=== PATIENT | female | born 1965 | race Caucasian/White ===

== ENCOUNTER 2017-12-11 09:06 | Observation (INO) | payer OTHER ==
[~2017-12-11] VITALS: Ht 165.1 cm; Wt 74.4 kg
[~2017-12-11 09:06] MED LIST: COUGH DROPS1 EAC1 MM; CYCLOBENZAPRINE5 MG PO; EFFEXOR 5050 MG/1 T1 PO; IBUPROFEN 800800 M1 PO; MUCINEX600 MG PO; NOHOMEMEDICATIONS; PERCOCET 5-3251 EACH PO; PREDNISONE50 MG PO; PROAIR HFA8.5 GM IH; TESSALON PERLE100 MG PO; TRAMADOL 50 MG50 MG PO; ULTRAM50 MG PO; UNICOMPLEX M TA1 TA1 PO; ZESTORETIC 10-1 EACH PO
[2017-12-11 09:11] VITALS: BP 140/77
[2017-12-11 09:50] LABS: ABSOLUTE EOSINOPHILS 0.2 thou/uL (0.0-0.7); ABSOLUTE LYMPHOCYTES 1.8 thou/uL (0.8-5.3); ABSOLUTE MONOCYTES 0.4 thou/uL (0.0-1.2); ABSOLUTE NEUTROPHILS 4.3 thou/uL (1.6-8.1); BASOPHILS 0.6 %; EOSINOPHILS 3.2 %; HEMATOCRIT 37.2 % (37.0-47.0); HEMOGLOBIN 12.7 gm/dL (12.0-15.0); LYMPHOCYTES 26.4 %; MCH 29.4 pg (26.0-34.0); MCHC 34.1 g/dL (28.0-37.0); MCV 86.2 fL (80.0-100.0); MONOCYTES 5.4 %; MPV 7.7 fl. (7.2-11.1); NUCLEATED RBCS 0 /100WBC; PLATELET COUNT* 304 thou/uL (150-400); POLYS 64.4 %; RBC 4.32 mil/uL (4.20-5.00); RDW-CV 12.9 % (10.5-14.5); WBC 6.7 thou/uL (4.0-11.0)
[2017-12-11 09:54] LABS: PROTIME 9.6 Seconds (9.20-11.50)
[2017-12-11 10:02] LABS: ANION GAP 6 mmol/L (7-16); BUN 14 mg/dL (7-18); CALCIUM 9.2 mg/dL (8.5-10.1); CHLORIDE 104 mmol/L (98-107); CO2 31 mmol/L (21-32); CREATININE 0.9 mg/dL (0.6-1.3); GLUCOSE 114 mg/dL (70-99); POTASSIUM 3.5 mmol/L (3.5-5.1); SODIUM 141 mmol/L (136-145)
[2017-12-11 10:09] LABS: ALBUMIN 3.4 g/dL (3.4-5.0); ALKALINE PHOSPHATASE 84 U/L (46-116); SGOT 16 U/L (15-37); SGPT 16 U/L (30-65); TOTAL BILIRUBIN 0.2 mg/dL (<0.1-1.0); TOTAL PROTEIN 7.1 g/dL (6.4-8.2); TROPONIN-I LEVEL <0.06 ng/mL (<0.06)
[2017-12-11 11:20] VITALS: BP 108/53
[2017-12-11 11:35] VITALS: BP 119/56
[2017-12-11] MEDS ORDERED: CLARITIN10 MG PO (11:58)
[2017-12-11 14:05] LABS: CHOLESTEROL 206 mg/dL (<200); HDL CHOLESTEROL 28 mg/dL (>40); LDL CHOLESTEROL 122 mg/dL (<100); TC:HDL 7.4 Ratio (Not establshd); TRIGLYCERIDE 281 mg/dL (<150); VLDL 56 mg/dL (<40)
[2017-12-11 14:06] LABS: SERUM ASSESSMENT CLEAR
--- NOTE | 2017-12-11 15:06 | 2DMMODE ---
[place] [address] 2 D/M-MODE ECHOCARDIOGRAM Name: SANDRAYVES Room: [address] IN [facility]#: [id number] Admission: 12/11/17 Attend Phys: Landen Bell Discharge: Date of : 61 Date of Service: 12/11/17 1506 Report #: [id number] THIS REPORT FOR: //name// APPROVED REPORT Study performed: 12/11/2017 13:51:02 EXAM: Comprehensive 2D, Doppler, and color-flow Echocardiogram Patient Location: In-Patient Room #: 229 Status: routine BSA: 1.82 HR: 61 bpm BP: 119/56 mmHg Rhythm: NSR Other Information Study Quality: Fair Indications CVA/TIA Echo Enhancing Agent Indication: Rule out Shunt Agent(s) / Amount(s) Used: Agitated Saline 10 cc 2D Dimensions LVEF(%): 67.18 (>50%) IVSd: 12.33 (7-11mm) LVOT Diam: 20.45 (18-24mm) LVDd: 42.28 mm PWd: 11.58 (7-11mm) Ascending Ao: 33.96 (22-36mm) LVDs: 26.67 (25-40mm) Aortic Root: 30.46 mm Anderson's LVEF: 67.18 % Volumes Left Atrial Volume (Systole) LA ESV Index: 19.70 mL/m2 Aortic Valve AoV Peak Carlos.: 1.71 m/s AO Peak Gr.: 11.71 mmHg LVOT Max P.56 mmHg AO Mean Gr.: 5.81 mmHg LVOT Mean P.22 mmHg LVOT Max V: 1.18 m/s AO V2 VTI: 30.65 cm LVOT Mean V: 0.66 m/[place] [address] 2 D/M-MODE ECHOCARDIOGRAM Name: YVES FLORES Room: [address] IN .R.#: [id number] Admission: 12/11/17 Attend Phys: Landen Bell Discharge: Date of : 61 Date of Service: 12/11/17 1506 Report #: [id number] CHRIS (VTI): 2.50 cm2 LVOT V1 VTI: 23.33 cm Mitral Valve E/A Ratio: 1.52 MV Decel. Time: 182.33 ms MV E Max Carlos.: 0.81 m/s MV PHT: 52.88 ms MVA (PHT): 4.16 cm2 TDI E/Lateral E': 6.75 E/Medial E': 5.79 Medial E' Carlos.: 0.14 m/s Lateral E' Carlos.: 0.12 m/s Pulmonary Valve PV Peak Carlos.: 1.20 m/s PV Peak Gr.: 5.80 mmHg Tricuspid Valve RAP Estimate: 5.00 mmHg TR Peak Gr.: 22.26 mmHg RVSP: 27.26 mmHg PA Pressure: 27.26 mmHg Left Ventricle The left ventricle is normal size. There is normal LV segmental wall motion. Mild concentric left ventricular hypertrophy. Left ventricular systolic function is normal. The left ventricular ejection fraction is within the normal range. LVEF is 60-65%. The left ventricular diastolic function is normal. Right Ventricle The right ventricle is normal size. The right ventricular systolic function is normal. Atria The left atrium size is normal. Interatrial septum is intact without evidence of ASD or PFO. The right atrium size is normal. Aortic Valve The aortic valve is normal in structure. No aortic regurgitation is present. There is no aortic valvular stenosis. Mitral Valve The mitral valve is normal in structure. There is no mitral valve regurgitation noted. No evidence of mitral valve stenosis. [place] [address] 2 D/M-MODE ECHOCARDIOGRAM Name: SANDRAYVES Room: [address] M.R.#: [id number] Admission: 12/11/17 Attend Phys: Landen Bell Discharge: Date of : 61 Date of Service: 12/11/17 1506 Report #: [id number] The tricuspid valve is normal in structure. Trace tricuspid regurgitation estimated pa pressure 30 mm Hg Pulmonic Valve The pulmonary valve is normal in structure. There is no pulmonic valvular regurgitation. Great Vessels The aortic root is normal in size. IVC is normal in size and collapses with >50% inspiration Pericardium There is no pericardial effusion. <Conclusion> Mild concentric left ventricular hypertrophy. LVEF is 60-65%. Interatrial septum is intact without evidence of ASD or PFO. <ELECTRONICALLY SIGNED> By: Braulio Polanco MD, [facility] 12/11/17 1506 1506 1506 Braulio Polanco MD, FACC /INF
--- NOTE | 2017-12-11 15:15 | EKG ---
[place] [address] ELECTROCARDIOGRAM REPORT Name: SANDRAYVES ROSSI Room: [address] ADM IN [facility].#: [id number] Admission: 12/11/17 Attend Phys: Landen Ledesma, Discharge: Date of : 61 Report #: [id number] THIS REPORT FOR: //name// [facility] ED Test Date: 2017-12-11 Test Time: 09:31:48 Pat Name: YVES FLORES Department: Room: [facility] Gender: F Chief Estimator: : 1965 Requested By: Familia Lewis Order Number: [id number] MD: Braulio Polanco Measurements Intervals [place] Rate: 64 P: 70 AL: 147 QRS: 66 QRSD: 88 T: 68 QT: 477 QTc: 493 Interpretive Statements Sinus rhythm nonspecific st changes low voltage Low voltage, precordial leads Borderline prolonged QT interval No previous ECG available for comparison Electronically Signed On 12-11-2017 15:15:15 CDT by Braulio Polanco [email or web address] <ELECTRONICALLY SIGNED> By: Braulio Polanco MD, [facility] 12/11/17 1515 0931 Braulio Polanco MD, [facility] /EPI
[2017-12-11 15:50] VITALS: BP 109/49
[2017-12-11 16:00] VITALS: BP 109/49
[2017-12-11 20:00] VITALS: BP 118/68
[2017-12-12] VITALS: BP 114/60
[2017-12-12 04:00] VITALS: BP 137/68
[2017-12-12 08:15] VITALS: BP 124/65
[2017-12-12 12:17] VITALS: BP 128/58
[2017-12-12 16:29] VITALS: BP 128/58
[2017-12-12] MEDS ORDERED: ASPIRIN325 PO (16:40)
[2017-12-12] MEDS ORDERED: TYLENOL EXTRA500 MG PO (16:43)
[2017-12-12 16:52] VITALS: BP 154/73
[2018-02-23] MEDS ORDERED: IBUPROFEN 800800 M1 PO (08:15)
[2018-02-23] MEDS ORDERED: BUSPIRONE HCL10 MG PO (13:21)
[2018-02-23] MEDS ORDERED: ZOCOR20 MG PO (13:22)
== END 2017-12-12 17:00 | disposition home or self-care (01) ==
LOC: M.ERS 09:06 → M.2W 10:21 → M.TBA-ER 10:21 → M.2W 11:35
PROVIDERS: Emergency Medicine; Psychiatry & Neurology Neurology; ADMIT Family Medicine
DX: G45.9 Transient cerebral ischemic attack, unspecified (principal); I10 Essential (primary) hypertension; J32.4 Chronic pansinusitis; F32.9 Major depressive disorder, single episode, unspecified; F17.210 Nicotine dependence, cigarettes, uncomplicated

== ENCOUNTER → 2018-01-22 | Outpatient (CLI) | payer OTHER ==
[~2018-01-22] MED LIST changes: +ASPIRIN325 PO; +BUSPIRONE HCL10 MG PO; +CLARITIN10 MG PO; +TYLENOL EXTRA500 MG PO; +ZOCOR20 MG PO
== END ==
LOC: M.MRI 04:56
DX: M47.22 Other spondylosis with radiculopathy, cervical region (principal); M48.02 Spinal stenosis, cervical region; I10 Essential (primary) hypertension; F17.210 Nicotine dependence, cigarettes, uncomplicated

== ENCOUNTER → 2018-02-23 | Outpatient (CLI) | payer OTHER ==
--- NOTE | 2018-03-10 15:35 | PAINCON ---
[address] [address] PAIN MANAGEMENT CONSULTATION Name: SANDRAROSEMARIE Room: [facility] Tim#: [id number] Admission: 02/23/18 Attend Phys: Maurisio Suazo MD Discharge: Date of : 61 Report #: [id number] THIS REPORT FOR: //name// CC: Damari Suazo DATE OF SERVICE: 02/23/2018 CHIEF COMPLAINT: Pain in the left arm that goes down from the neck into the thumb, elbow, and fingers. HISTORY: The patient is a 52-year-old female, who has been referred to the pain clinic for evaluation of neck, shoulder, and arm pain. She states that she has been having some pain since about 08/2017. It has been on and off for quite a number of years. She notes that the pain is worse when she is using her left arm a lot. She notes the pain is improved when she rests it as well as places ice on it. She describes it as continuous, constant, shooting, burning, throbbing, and rates it as 6/10 at this juncture. She has not had neck surgery. She denies any significant trauma. She has used ibuprofen, Flexeril, and still continues to have pain, which is problematic. PAST MEDICAL HISTORY: She has essential hypertension, nicotine habituation, dysthymic disorder, hyperlipidemia, transient ischemic attack, bronchitis, cancer, and dysplasia. PAST SURGICAL HISTORY: She has tonsillectomy, adenoids, x 1, and laser of the cervix for dysplasia. CURRENT MEDICATIONS: The patient is on Tylenol Extra Strength, aspirin 325 mg, buspirone 10 mg b.i.d., 7.5 mg twice a day; cyclobenzaprine 1 tablet of 5 mg p.o. t.i.d., ibuprofen 800 mg q.8 hours, lisinopril/hydrochlorothiazide 10/12.5, Claritin 10 mg, multivitamins with iron and minerals 1 tablet, Zocor 20 mg at bedtime, and Effexor 150 mg daily. ALLERGIES: THE PATIENT IS ALLERGIC TO CODEINE. SOCIAL HISTORY: She works at home care. She is working at this juncture. REVIEW OF SYSTEMS: Generally in good health, recent weight change, fatigue, weakness, headaches, wears glasses, blurred vision, ringing in the ears, loss of hearing, chronic sinus problems, mouth sores, swollen neck glands, shortness of breath with walking on flat, frequent diarrhea, nausea and vomiting, frequent urination, joint pain, joint stiffness, weakness of muscles and joints, muscle pain with cramps, back pain, difficulty walking, numbness and tingling sensation, nervousness, [place] [address] PAIN MANAGEMENT CONSULTATION Name: YVES FLORES ANN Room: [facility]#: [id number] Admission: 02/23/18 Attend Phys: Maurisio Suazo MD Discharge: Date of : 61 Report #: [id number] PAIN CLINIC ASSESSMENT AND PQRS: 1. History of osteoarthritis. The patient is not being treated for osteoarthritis, does have some left arm pain. 2. Pain intensity is 6/10. 3. Fall risk. The patient has not fallen in the last 3 months. 4. Blood thinner. The patient is not on a blood thinning medication. 5. Hypertension. The patient is being treated for hypertension. 6. Opioid therapy greater than 6 weeks. The patient is not receiving opioid medications on a regular basis. 7. Risk assessment tool, low for opioids. 8. Functional assessment tool. 9. Recreational drug use. The patient denies use of recreational drugs. 10. Tobacco: The patient smoked 35 years, down from 1 pack a day to a half pack a day at this juncture. 11. Alcohol: The patient denies use of alcoholic beverages on a frequent basis. PHYSICAL EXAMINATION: GENERAL: The patient is a well-developed, well-nourished white female. She appears her stated age. She is alert and oriented x 3. Her affect is appropriate. Speech is fluent. Height is 5 feet 5 inches, weight is 168 pounds, and BMI is 28. VITAL SIGNS: Blood pressure is 124/72, heart rate is 71, respiratory rate is 18, room air saturation is 96%, and temperature is 98.0. HEENT: Normocephalic, atraumatic. Extraocular eye muscles intact. Sclerae nonicteric. Mucous membranes are moist. NECK: Without adenopathy or JVD. HEART: Regular rate. S1, S2. LUNGS: Clear to auscultation. ABDOMEN: Nontender. Bowel sounds present. EXTREMITIES: Upper extremity muscle strength is judged to be 5/5 in the right upper extremity. The patient has some decrease muscle strength in the left arm. She has some numbness and tingling on the left side in the C8 dermatomal distribution. Deep tendon reflexes are +1 for the left and the right biceps. The patient without significant scoliosis, kyphosis, or lordosis. She has muscle strength judged to be 5/5 for the major muscle groups in the lower extremity. Forward bending and right lateral rotation were not problematic. The patient is able to stand on her toes and heels. Straight leg raise is negative. Nicolás sign is negative. LABORATORY DATA: MRI of the cervical spine dated 01/22/2018: 1. C3-C4: There is minimal posterior disk bulge. There is no significant central spinal canal or right-sided neural foraminal stenosis. There is [id number] left neural foraminal stenosis due to uncovertebral and facet arthrosis with at least moderate left facet arthrosis. 2. C4-C5: There is a small broad-based posterior disk bulge. [place] [address] PAIN MANAGEMENT CONSULTATION Name: YVES FLORES ANN Room: [facility]#: [id number] Admission: 02/23/18 Attend Phys: Maurisio Suazo MD Discharge: Date of : 61 Report #: [id number] significant central spinal canal or right-sided neural foraminal stenosis. There is a mild left neural foraminal stenosis due to uncovertebral and facet arthrosis. 3. C5-C6: There is a small broad-based angioedema, posterior disk osteophyte complex, which mildly effaces the ventral thecal sac. There is no significant central spinal canal stenosis. There is moderate right and mild to left neural foraminal stenosis due to uncovertebral and facet arthrosis. 4. C6-C7. There is no significant disk bulge or protrusion identified. There is no significant central spinal canal or neural foraminal stenosis. 5. C7-T1: No significant disk bulge. IMPRESSION: 1. Cervical radiculopathy involving the left arm with numbness, weakness, and sensory change. 2. Essential hypertension. 3. Nicotine habituation. 4. Dysthymic disorder. 5. Hyperlipidemia. 6. History of transient ischemic attack. 7. She is having pain and discomfort with the pain that is radiating down to the left arm. She notes that there are sensory changes involving her little finger, forearm, and elbow area. She perceives some weakness in the C7-T8 dermatomal distribution. Also, has some pain and discomfort in the left suprascapular area. She has some discomfort in the mid back area about the bra line. RECOMMENDATIONS: We have discussed treatment options with the patient. Risks and benefits of a cervical epidural steroid injection were discussed. They could include but are not limited to infection, worsening of pain, no improvement in pain, and the patient will return to the pain clinic at which time she will then consider undergoing a cervical epidural steroid injection to help decrease the pain and discomfort that she is having. She will continue with her current medications of Flexeril and ibuprofen. We would like to thank you for letting us to participate in her care. We hope she continues to improve. <ELECTRONICALLY SIGNED> By: Maurisio Suazo MD 03/10/18 1535 1612 [id number]. Gurmeet Suazo MD /[facility]
== END ==
LOC: M.PC 05:05
DX: M54.2 Cervicalgia (principal); R20.0 Anesthesia of skin

== ENCOUNTER → 2018-03-09 | Outpatient (CLI) | payer OTHER ==
--- NOTE | ~2018-03-09 | PAINCON ---
[address] [address] PAIN MANAGEMENT CONSULTATION Name: YVES FLORES ANN Room: [facility] Meeta#: [id number] Admission: 03/09/18 Attend Phys: Maurisio Suazo MD Discharge: Date of : 61 Report #: [id number] THIS REPORT FOR: //name// CC: Damari Suazo DATE OF SERVICE: 03/09/2018 FOLLOWUP COMPLAINT: Left arm pain that radiates down into the thumb, elbow and fingers. HISTORY: The patient is a 52-year-old female who has been seen in the Pain Clinic because of neck, shoulder, and arm pain. States that she has been having pain and discomfort, which has been problematic since 08/2017. Over the years, the pain has waxed and waned. At this point, she notes that the pain is more problematic in the left arm. It is more disruptive to activities of daily living. She notes that her pain improves when she places on ice. Continues to describe it as constant, continuous, shooting, burning, throbbing pain and rates it as a 6/10. She has returned today with the intent on undergoing a cervical epidural steroid injection to help quell the pain. Denies any new trauma. Continues to use ibuprofen, Flexeril to help with pain control. ALLERGIES: CODEINE. CURRENT MEDICATIONS: Include Tylenol Extra Strength, aspirin 33.25 mg, buspirone 10 mg b.i.d., 75 mg twice a day, Flexeril 5 mg p.o. t.i.d., ibuprofen 800 mg q. 8 hours, lisinopril/hydrochlorothiazide 10/12.5, Claritin 10 mg, multivitamin with iron and minerals, Zocor 20 mg at bedtime, and Effexor 150 mg daily. PAIN CLINIC ASSESSMENT/PQRS: 1. The patient is not being treated for osteoarthritis or rheumatoid arthritis. 2. Height 5 feet 5 inches, weight 173 pounds, BMI is 29.2. 3. Vital signs: Blood pressure 124/71, heart rate 83, respiratory rate 16, room air saturation 96%, temperature 98.4. 4. Pain intensity 10. 5. Fall history: The patient has not fallen in the last 3 months. 6. Blood thinner. The patient is not on a blood thinning medication. 7. Hypertension. The patient is being treated for hypertension. 8. Opioids greater than 6 weeks. The patient is not receiving opioid medications. 9. Risk assessment tool, low for opioid use. 10. Functional assessment tool. 11. Recreational drug use. The patient denies use of recreational drugs. 12. Tobacco: The patient has smoked 35 years, smokes 1 pack a day at this juncture, we discussed the benefits of smoking cessation [place] [address] PAIN MANAGEMENT CONSULTATION Name: YVES FLORES ANN Room: [facility]#: [id number] Admission: 03/09/18 Attend Phys: Maurisio Suazo MD Discharge: Date of : 61 Report #: [id number] 13. Alcohol: The patient denies use of alcoholic beverages on a regular basis. PHYSICAL EXAMINATION: GENERAL: The patient is a well-developed, well-nourished white female. Somewhat obese. She is alert and oriented x 3. Her affect is appropriate. Speech is fluent. HEENT: Normocephalic, atraumatic. Extraocular eye muscles intact. Sclerae nonicteric. Mucous membranes are moist. HEART: Regular rate. S1, S2. LUNGS: Clear to auscultation without rhonchi or rales. ABDOMEN: Nontender. Bowel sounds present. EXTREMITIES: Upper extremity muscle strength is judged to be 5/5 in the right upper extremity. The patient has some decrease muscle strength in the left arm. Has some numbness and tingling on the left arm with sensory changes down into the left side with involvement of the C8 dermatomal distribution. Deep tendon reflexes are +1 for the left and right biceps. The patient is without significant scoliosis, kyphosis or lordosis. Muscle strength is judged to be 5/5 for the major muscle groups in the lower extremity. Forward bending, right lateral rotation were not problematic. The patient is able to stand on her heels and her toes. Straight leg raise is negative. Nicolás sign is negative. IMPRESSION: 1. Cervical radiculopathy involving the left arm with numbness, weakness and sensory changes. 2. Essential hypertension. 3. Nicotine habituation. 4. Dysthymic disorder. 5. Hyperlipidemia. 6. History of transient ischemic attack. 7. The patient is having discomfort and pain is radiating down her left arm. Notes that there are some sensory changes involving her little finger, forearm and elbow. Perceives weakness in the C7/C8 dermatomal distribution. The patient also has some pain and discomfort in the left suprascapular area. Has some discomfort in the mid portion of her back near the area of her bra line as well. RECOMMENDATIONS: We discussed treatment options with the patient. The patient has returned to the Pain Clinic for a cervical epidural steroid injection. Risks and benefits of the procedure were again reviewed. They include but are not limited to infection, increased muscle soreness, headache, bleeding, no improvement in pain, paralysis. The patient elects to proceed. PROCEDURE NOTE: The patient was assisted in getting on the examination table. Her back was sterilely prepped with a Betadine solution. A 0.25% bupivacaine was infiltrated at the C7-T1 interspace. Fluoroscopy using anterior, posterior as well as lateral viewing were implemented. A 17-gauge Tuohy with loss of resistance technique was used to gain access to the epidural [place] [address] PAIN MANAGEMENT CONSULTATION Name: YVES FLORES ANN Room: [facility]#: [id number] Admission: 03/09/18 Attend Phys: Maurisio Suazo MD Discharge: Date of : 61 Report #: [id number] no CSF, heme or paresthesia. Total of 80 mg Depo-Medrol, 40 mg triamcinolone and 2 mL of 0.25% bupivacaine was injected. The patient tolerated the procedure well. There were no complications. She remained in the Pain Clinic for an appropriate amount of time. Approximately 15 seconds fluoroscopy time was used. We would like to thank you for letting us participate in her care. We hope she continues to improve. We would like to thank you for letting us participate in her care. By: 1510 [id number]. Gurmeet Suazo MD /nt
== END | disposition home or self-care (01) ==
LOC: M.PC 04:36
DX: M54.12 Radiculopathy, cervical region (principal); I10 Essential (primary) hypertension; F34.1 Dysthymic disorder; E78.5 Hyperlipidemia, unspecified; E66.9 Obesity, unspecified; F17.200 Nicotine dependence, unspecified, uncomplicated; Z86.73 Personal history of transient ischemic attack (TIA), and cerebral infarction without residual deficits; Z88.8 Allergy status to other drugs, medicaments and biological substances; Z79.82 Long term (current) use of aspirin; Z79.899 Other long term (current) drug therapy; Z68.29 Body mass index [BMI] 29.0-29.9, adult

== ENCOUNTER → 2018-05-05 | Outpatient (CLI) | payer OTHER ==
[2018-05-05 14:56] LABS: ABSOLUTE BASOPHILS 0.1 thou/uL (0.0-0.2); ABSOLUTE EOSINOPHILS 0.1 thou/uL (0.0-0.7); ABSOLUTE LYMPHOCYTES 2.1 thou/uL (0.8-5.3); ABSOLUTE MONOCYTES 0.4 thou/uL (0.0-1.2); ABSOLUTE NEUTROPHILS 6.6 thou/uL (1.6-8.1); BASOPHILS 0.6 %; EOSINOPHILS 1.5 %; HEMATOCRIT 35.2 % (37.0-47.0); LYMPHOCYTES 22.5 %; MCH 30.1 pg (26.0-34.0); MCHC 34.1 g/dL (28.0-37.0); MCV 88.3 fL (80.0-100.0); MONOCYTES 4.5 %; MPV 6.8 fl. (7.2-11.1); NUCLEATED RBCS 0 /100WBC; PLATELET COUNT* 389 thou/uL (150-400); POLYS 70.9 %; RBC 3.98 mil/uL (4.20-5.00); RDW-CV 13.8 % (10.5-14.5); WBC 9.3 thou/uL (4.0-11.0)
[2018-05-05 15:14] LABS: ALBUMIN 3.4 g/dL (3.4-5.0); CALCIUM 9.4 mg/dL (8.5-10.1); POTASSIUM 4.1 mmol/L (3.5-5.1); TOTAL BILIRUBIN 0.2 mg/dL (<0.1-1.0); TOTAL PROTEIN 6.9 g/dL (6.4-8.2)
== END ==
LOC: M.ULTRA 14:28
PROVIDERS: Family Medicine
DX: R22.1 Localized swelling, mass and lump, neck (principal); I10 Essential (primary) hypertension; Z87.891 Personal history of nicotine dependence

== ENCOUNTER 2018-07-19 03:43 | Emergency (ER) | payer OTHER ==
[~2018-07-19] VITALS: Ht 167.6 cm; Wt 83.5 kg
[2018-07-19] MEDS ORDERED: ULTRAM 50MG TAB50 MG PO (03:58)
[2018-07-19 04:21] VITALS: BP 133/53
== END 2018-07-19 04:26 | disposition home or self-care (01) ==
LOC: M.ERS 03:43
DX: S43.491A Other sprain of right shoulder joint, initial encounter (principal); I10 Essential (primary) hypertension; F32.9 Major depressive disorder, single episode, unspecified; F17.210 Nicotine dependence, cigarettes, uncomplicated; Z98.890 Other specified postprocedural states; Z88.5 Allergy status to narcotic agent; W01.0XXA Fall on same level from slipping, tripping and stumbling without subsequent striking against object, initial encounter; Y93.89 Activity, other specified; Y92.89 Other specified places as the place of occurrence of the external cause; Y99.8 Other external cause status

== ENCOUNTER 2019-01-25 22:49 | Emergency (ER) | payer OTHER ==
[~2019-01-25] VITALS: Ht 165.1 cm; Wt 78.9 kg
[~2019-01-25 22:49] MED LIST changes: +ULTRAM 50MG TAB50 MG PO
[2019-01-26 00:20] LABS: ABSOLUTE BASOPHILS 0.1 thou/uL (0.0-0.2); ABSOLUTE EOSINOPHILS 0.2 thou/uL (0.0-0.7); ABSOLUTE LYMPHOCYTES 2.4 thou/uL (0.8-5.3); ABSOLUTE MONOCYTES 0.4 thou/uL (0.0-1.2); ABSOLUTE NEUTROPHILS 4.9 thou/uL (1.6-8.1); BASOPHILS 1.2 %; EOSINOPHILS 2.5 %; HEMOGLOBIN 11.5 gm/dL (12.0-15.0); LYMPHOCYTES 29.9 %; MCH 28.9 pg (26.0-34.0); MCHC 33.9 g/dL (28.0-37.0); MCV 85.1 fL (80.0-100.0); MONOCYTES 5.5 %; MPV 7.5 fl. (7.2-11.1); NUCLEATED RBCS 0 /100WBC; PLATELET COUNT* 311 thou/uL (150-400); POLYS 60.9 %; RBC 3.99 mil/uL (4.20-5.00); RDW-CV 14.3 % (10.5-14.5); WBC 8.1 thou/uL (4.0-11.0)
[2019-01-26 00:34] LABS: URINE BILIRUBIN NEGATIVE (Negative); URINE BLOOD 1+ (Negative); URINE CLARITY CLEAR; URINE COLOR YELLOW; URINE GLUCOSE-RANDOM NEGATIVE (Negative); URINE KETONES NEGATIVE (Negative); URINE LEUKOCYTES-REFLEX NEGATIVE (Negative); URINE NITRITE-REFLEX NEGATIVE (Negative); URINE PROTEIN NEGATIVE (Negative); URINE SPECIFIC GRAVITY 1.015 (1.005-1.030); URINE UROBILINOGEN 0.2 E.U./dl (0.2-1.0)
[2019-01-26 00:35] LABS: CALCIUM 9.2 mg/dL (8.5-10.1); CREATININE 1.3 mg/dL (0.6-1.3); POTASSIUM 4.1 mmol/L (3.5-5.1)
[2019-01-26 00:38] LABS: ALBUMIN 3.4 g/dL (3.4-5.0); TOTAL BILIRUBIN 0.1 mg/dL (<0.1-1.0)
[2019-01-26 00:54] LABS: CASTS None Seen /LPF (None Seen); SQUAMOUS >10 Many /LPF (0-3)
[2019-01-26 00:55] LABS: CRYSTALS None Seen /LPF (None Seen); URINE RBC 0-2 Rare /HPF (0-2); URINE WBC-REFLEX 6-15 Few /HPF (0-5)
[2019-01-26] MEDS ORDERED: ZOFRAN ODT4 MG PO (01:50)
[2019-01-26] MEDS ORDERED: CIPROFLOXACIN500 M1 PO (01:50)
[2019-01-26 02:06] VITALS: BP 114/66
== END 2019-01-26 02:09 | disposition home or self-care (01) ==
LOC: M.ERS 22:49
PROVIDERS: Emergency Medicine
DX: N39.0 Urinary tract infection, site not specified (principal); R19.7 Diarrhea, unspecified; R42 Dizziness and giddiness; F17.210 Nicotine dependence, cigarettes, uncomplicated; F32.9 Major depressive disorder, single episode, unspecified; I10 Essential (primary) hypertension; Z88.5 Allergy status to narcotic agent; Z98.890 Other specified postprocedural states

== ENCOUNTER 2020-07-14 13:32 | Emergency (ER) | payer OTHER ==
[~2020-07-14] VITALS: Ht 165.1 cm; Wt 78.9 kg
[~2020-07-14 13:32] MED LIST changes: +CIPROFLOXACIN500 M1 PO; +ZOFRAN ODT4 MG PO
[2020-07-14 13:43] VITALS: BP 116/61
[2020-07-14] MEDS ORDERED: INHALER (13:46)
[2020-07-14] MEDS ORDERED: MEDROLDOSEPACK PO (14:22)
[2020-07-14] MEDS ORDERED: VOLTAREN GEL 1100 G1 TOP (14:22)
[2020-07-14] MEDS ORDERED: PROAIR HFA8.5 GM INH (14:29)
[2020-07-14] MEDS ORDERED: KEFLEX500 M1 PO (14:29)
== END 2020-07-14 14:39 | disposition home or self-care (01) ==
LOC: M.ERS 13:32
DX: M77.8 Other enthesopathies, not elsewhere classified (principal); L03.113 Cellulitis of right upper limb; M61.54 Other ossification of muscle, hand; Z98.890 Other specified postprocedural states; F32.9 Major depressive disorder, single episode, unspecified; I10 Essential (primary) hypertension; F17.210 Nicotine dependence, cigarettes, uncomplicated; Z79.899 Other long term (current) drug therapy; Z79.82 Long term (current) use of aspirin; Z88.5 Allergy status to narcotic agent; Z76.0 Encounter for issue of repeat prescription